=== PATIENT | male | born 1965 | race Caucasian/White ===

== ENCOUNTER 2017-10-12 08:14 | Inpatient (IN) | payer OTHER, BC ==
[2017-10-12] MEDS: morphine 2 MG INJ IV ×3 (09:15→20:34)
[2017-10-12] MEDS: ONDANSETRON 4 MG INJ IV ×2 (09:16→21:06)
[2017-10-12] MEDS: FAMOTIDINE 20 MG INJ IV ×2 (09:16→20:33)
[2017-10-12] MEDS: SOD CHLORIDE 0.9% 1,000 ML IV ×3 (09:16→16:27)
[2017-10-12 09:35] LABS: ADD MAN DIFF? NO
[2017-10-12 09:41] LABS: BASOPHIL # 0.1 10^3/ul (0.0-0.1); BASOPHILS % 0.3 % (0.0-2.0); EOSINOPHILS % 0.3 % (0.0-7.0); HEMOGLOBIN 16.5 g/dl (14.0-18.0); LYMPHOCYTES # 0.6 10^3/ul (0.8-2.9); LYMPHOCYTES % 4.2 % (15.0-51.0); MEAN CORPUSCULAR HEMOGLOBIN 30.1 pg (29.0-33.0); MEAN CORPUSCULAR VOLUME 91.2 fl (82.0-101.0); MEAN PLATELET VOLUME 9.7 fl (7.4-10.4); MONOCYTE # 0.9 10^3/ul (0.3-0.9); MONOCYTES % 5.9 % (0.0-11.0); NEUTROPHILS % 88.8 % (39.0-77.0); PLATELET COUNT 244 10^3/UL (140-415); RED BLOOD COUNT 5.48 10^6/ul (4.70-6.10); RED CELL DISTRIBUTION WIDTH 13.5 % (11.5-14.5)
[2017-10-12 09:41] LABS: WHITE BLOOD COUNT 14.6 10^3/ul (4.8-10.8)
[2017-10-12 09:55] LABS: ALANINE AMINOTRANSFERASE 20 IU/L (13-69); ALBUMIN 4.8 g/dl (3.3-4.9); ALBUMIN/GLOBULIN RATIO 1.29; ALKALINE PHOSPHATASE 123 IU/L (42-121); ANION GAP 18 (8-16); ASPARTATE AMINO TRANSFERASE 38 IU/L (15-46); BILIRUBIN,INDIRECT 0.4 mg/dl (0-1.1); BILIRUBIN,TOTAL 0.4 mg/dl (0.2-1.3); BLOOD UREA NITROGEN 18 mg/dl (7-20); CALCIUM 10.1 mg/dl (8.4-10.2); CARBON DIOXIDE 24 mmol/L (21-31); CHLORIDE 106 mmol/L (97-110); GLUCOSE 149 mg/dl (70-220); LIPASE 60 U/L (23-300); POTASSIUM 4.7 mmol/L (3.5-5.1); SODIUM 143 mmol/L (135-144); TOTAL PROTEIN 8.5 g/dl (6.1-8.1)
[2017-10-12 10:34] LABS: ADD UMIC YES; UR ASCORBIC ACID NEGATIVE (NEGATIVE); UR BILIRUBIN (Dip) NEGATIVE (NEGATIVE); UR BLOOD (Dip) NEGATIVE (NEGATIVE); UR CLARITY CLEAR (CLEAR); UR COLOR YELLOW (YELLOW); UR GLUCOSE (Dip) 1+ mg/dL (NEGATIVE); UR KETONES (Dip) NEGATIVE (NEGATIVE); UR LEUKOCYTE ESTERASE (Dip) NEGATIVE Leu/ul (NEGATIVE); UR MUCUS MANY /HPF (NONE SEEN); UR NITRITE (Dip) NEGATIVE (NEGATIVE); UR RBC 4 /HPF (0-5); UR SPECIFIC GRAVITY (Dip) 1.031 (1.003-1.030); UR SQUAMOUS EPITHELIAL CELL FEW /HPF (FEW); UR TOTAL PROTEIN (Dip) 2+ mg/dl (NEGATIVE); UR UROBILINOGEN (Dip) 1+ mg/dL (NEGATIVE); UR WBC 1 /HPF (0-5)
[2017-10-12] MEDS ORDERED: ACETAMINOPHEN 325 MG TAB PO (13:30)
[2017-10-12] MEDS ORDERED: ONDANSETRON 4 MG INJ IV (13:30)
[2017-10-12] MEDS ORDERED: GLUCOSE GEL 15 GRAM TUBE PO ×2 (14:30)
[2017-10-12] MEDS ORDERED: GLUCOSE GEL 15 GRAM TUBE BUCCAL (14:30)
[2017-10-12] MEDS ORDERED: GLUCAGON 1 MG INJ IM (14:30)
[2017-10-12] MEDS: Discontinue current oral sulfonylureas (glyburide, glipizide, and/or glimepiride) prior to XX (14:30)
[2017-10-12] MEDS ORDERED: NACL 0.9% 3 ML SYG IV (14:30)
[2017-10-12] MEDS ORDERED: ACETAMINOPHEN 650 MG SUPP PR (14:30)
[2017-10-12] MEDS: HYPOGLYCEMIA PROTOCOL when Glucose is <70 mg/dL or symptomatic <90 mg/dL. XX (14:30)
[2017-10-12] MEDS ORDERED: DEXTROSE 50% 50 ML SYRINGE IV (14:30)
[2017-10-12] MEDS ORDERED: NA PHOSPHATE/BIPHOS 133 ML ENEMA PR (14:30)
[2017-10-12 15:29] LABS: AMPHETAMINE/METHAMPHETAMINE Negative (NEGATIVE); BARBITURATES Negative (NEGATIVE); BENZODIAZEPINES Negative (NEGATIVE); CANNABINOIDS Negative (NEGATIVE); COCAINE Negative (NEGATIVE); OPIATES Positive (NEGATIVE)
[2017-10-12] MEDS: INSULIN ASPART [NOVOLOG] 3 ML PEN SC ×2 (17:34→20:32)
[2017-10-12 19:41] LABS: HEPATITIS B SURFACE ANTIGEN NEGATIVE (NEGATIVE)
[2017-10-13] MEDS: INSULIN ASPART [NOVOLOG] 3 ML PEN SC ×6 (01:00→20:52)
[2017-10-13] MEDS: ACCU-CHEK XX (01:41)
[2017-10-13] MEDS: SOD CHLORIDE 0.9% 1,000 ML IV ×2 (04:36→15:08)
[2017-10-13 05:53] LABS: ADD MAN DIFF? NO
[2017-10-13 06:07] LABS: BASOPHILS % 0.4 % (0.0-2.0); EOSINOPHILS # 0.1 10^3/ul (0.0-0.5); EOSINOPHILS % 1.3 % (0.0-7.0); HEMATOCRIT 41.7 % (42.0-52.0); HEMOGLOBIN 14.1 g/dl (14.0-18.0); LYMPHOCYTES # 1.2 10^3/ul (0.8-2.9); MEAN CORPUSCULAR HEMOGLOBIN 30.7 pg (29.0-33.0); MEAN CORPUSCULAR HGB CONC 33.8 g/dl (32.0-37.0); MEAN CORPUSCULAR VOLUME 90.8 fl (82.0-101.0); MONOCYTE # 0.5 10^3/ul (0.3-0.9); NEUTROPHIL # 3.6 10^3/ul (1.6-7.5); NEUTROPHILS % 67.1 % (39.0-77.0); PLATELET COUNT 229 10^3/UL (140-415); POSITIVE DIFF @See below; RED BLOOD COUNT 4.59 10^6/ul (4.70-6.10); RED CELL DISTRIBUTION WIDTH 14.1 % (11.5-14.5)
[2017-10-13 06:07] LABS: WHITE BLOOD COUNT 5.3 10^3/ul (4.8-10.8)
[2017-10-13 06:23] LABS: HEMOGLOBIN A1C 7.2 % (0-5.9)
[2017-10-13 06:35] LABS: ALANINE AMINOTRANSFERASE 31 IU/L (13-69); ALBUMIN 3.7 g/dl (3.3-4.9); ALBUMIN/GLOBULIN RATIO 1.23; ALKALINE PHOSPHATASE 72 IU/L (42-121); ANION GAP 15 (8-16); ASPARTATE AMINO TRANSFERASE 22 IU/L (15-46); BILIRUBIN,INDIRECT 0.5 mg/dl (0-1.1); BILIRUBIN,TOTAL 0.5 mg/dl (0.2-1.3); BLOOD UREA NITROGEN 17 mg/dl (7-20); CALCIUM 8.6 mg/dl (8.4-10.2); CARBON DIOXIDE 25 mmol/L (21-31); CHLORIDE 106 mmol/L (97-110); CREATININE 0.72 mg/dl (0.61-1.24); GLUCOSE 102 mg/dl (70-220); PHOSPHORUS 3.4 mg/dl (2.5-4.9); POTASSIUM 3.8 mmol/L (3.5-5.1); SODIUM 142 mmol/L (135-144); TOTAL PROTEIN 6.7 g/dl (6.1-8.1)
[2017-10-13] MEDS: morphine 2 MG INJ IV ×2 (07:24→17:19)
[2017-10-13] MEDS: ONDANSETRON 4 MG INJ IV (07:25)
[2017-10-13] MEDS: FAMOTIDINE 20 MG INJ IV ×2 (09:17→20:38)
[2017-10-13] MEDS: DEXTROSE 50% 50 ML SYRINGE IV (21:02)
[2017-10-14] MEDS: INSULIN ASPART [NOVOLOG] 3 ML PEN SC ×6 (01:00→17:42)
[2017-10-14] MEDS: ACCU-CHEK XX (01:42)
[2017-10-14] MEDS: morphine 2 MG INJ IV ×2 (02:35→22:13)
[2017-10-14] MEDS: SOD CHLORIDE 0.9% 1,000 ML IV ×3 (04:25→20:54)
[2017-10-14] MEDS: DEXTROSE 50% 50 ML SYRINGE IV (05:40)
[2017-10-14] MEDS: FAMOTIDINE 20 MG INJ IV ×2 (08:30→20:47)
[2017-10-14] MEDS ORDERED: DIATR MEGLU/DIATRIZOATE SODIUM 120 ML BTL (08:57)
[2017-10-14] MEDS ORDERED: metFORMIN 500 MG TAB PO (18:00)
[2017-10-14] MEDS: Insulin NOVOLOG SS MILD Algorithm (SS with meals and bedtime) SC ×2 (18:00→21:00)
[2017-10-15] MEDS: ACCUCHECK AT 2AM (Patients on SS coverage) XX (01:52)
[2017-10-15 06:08] LABS: ADD MAN DIFF? NO
[2017-10-15 06:20] LABS: WHITE BLOOD COUNT 5.5 10^3/ul (4.8-10.8)
[2017-10-15 06:20] LABS: BASOPHILS % 0.5 % (0.0-2.0); EOSINOPHILS # 0.1 10^3/ul (0.0-0.5); EOSINOPHILS % 2.4 % (0.0-7.0); HEMATOCRIT 37.9 % (42.0-52.0); HEMOGLOBIN 12.6 g/dl (14.0-18.0); LYMPHOCYTES # 1.7 10^3/ul (0.8-2.9); MEAN CORPUSCULAR HEMOGLOBIN 30.1 pg (29.0-33.0); MEAN CORPUSCULAR HGB CONC 33.2 g/dl (32.0-37.0); MEAN CORPUSCULAR VOLUME 90.7 fl (82.0-101.0); MEAN PLATELET VOLUME 10.1 fl (7.4-10.4); MONOCYTE # 0.5 10^3/ul (0.3-0.9); MONOCYTES % 8.6 % (0.0-11.0); NEUTROPHIL # 3.2 10^3/ul (1.6-7.5); NEUTROPHILS % 57.3 % (39.0-77.0); PLATELET COUNT 222 10^3/UL (140-415); POSITIVE DIFF @See below; RED BLOOD COUNT 4.18 10^6/ul (4.70-6.10); RED CELL DISTRIBUTION WIDTH 13.6 % (11.5-14.5)
[2017-10-15 06:56] LABS: ANION GAP 13 (8-16); BLOOD UREA NITROGEN 12 mg/dl (7-20); CALCIUM 8.2 mg/dl (8.4-10.2); CARBON DIOXIDE 27 mmol/L (21-31); CHLORIDE 106 mmol/L (97-110); CREATININE 0.79 mg/dl (0.61-1.24); GLUCOSE 78 mg/dl (70-220); POTASSIUM 3.2 mmol/L (3.5-5.1); SODIUM 143 mmol/L (135-144)
[2017-10-15 07:03] LABS: PHOSPHORUS 2.6 mg/dl (2.5-4.9)
[2017-10-15 07:03] LABS: MAGNESIUM 1.9 mg/dl (1.7-2.5)
[2017-10-15] MEDS: Insulin NOVOLOG SS MILD Algorithm (SS with meals and bedtime) SC ×3 (08:00→17:35)
[2017-10-15] MEDS: LINAGLIPTIN 5 MG TABLET PO (08:21)
[2017-10-15] MEDS: FAMOTIDINE 20 MG INJ IV (08:21)
[2017-10-15] MEDS: metFORMIN 500 MG TAB PO ×2 (08:22→17:35)
[2017-10-15] MEDS: PIOGLITAZONE 30 MG TAB PO (08:22)
[2017-10-15] MEDS: SOD CHLORIDE 0.9% 1,000 ML IV ×2 (11:10→17:08)
[2017-10-15] MEDS ORDERED: morphine LIQ (10 MG/5 ML) CUP PO (15:30)
== END 2017-10-15 20:40 | disposition home or self-care (01) | DRG 390 ==
LOC: E/R 08:14 → MS2 13:29
DX: K56.609 Unspecified intestinal obstruction, unspecified as to partial versus complete obstruction (principal); B35.1 Tinea unguium; E11.9 Type 2 diabetes mellitus without complications; E66.9 Obesity, unspecified; Z68.33 Body mass index [BMI] 33.0-33.9, adult
CPT/HCPCS: 36415; 71045; 74176; 74250; 80048; 80053; 80307; 81001; 82962; 83036; 83690; 83735; 84100; 85025; 86803; 87340; 96374; 96375; 96376; 99285-25

== ENCOUNTER 2018-01-25 05:42 | Emergency (ER) | payer OTHER ==
[2018-01-25 06:38] LABS: ADD MAN DIFF? NO
[2018-01-25] MEDS: SOD CHLORIDE 0.9% 1,000 ML IV (06:43)
[2018-01-25] MEDS: ONDANSETRON 4 MG INJ IV (06:43)
[2018-01-25] MEDS: morphine 4 MG/ML VIAL IV (06:43)
[2018-01-25 06:47] LABS: BASOPHIL # 0.1 10^3/ul (0.0-0.1); BASOPHILS % 0.9 % (0.0-2.0); EOSINOPHILS # 0.1 10^3/ul (0.0-0.5); EOSINOPHILS % 2.3 % (0.0-7.0); HEMOGLOBIN 14.8 g/dl (14.0-18.0); LYMPHOCYTES # 1.9 10^3/ul (0.8-2.9); LYMPHOCYTES % 32.9 % (15.0-51.0); MEAN CORPUSCULAR HEMOGLOBIN 30.1 pg (29.0-33.0); MEAN CORPUSCULAR HGB CONC 33.6 g/dl (32.0-37.0); MEAN CORPUSCULAR VOLUME 89.6 fl (82.0-101.0); MEAN PLATELET VOLUME 9.9 fl (7.4-10.4); MONOCYTE # 0.4 10^3/ul (0.3-0.9); MONOCYTES % 6.6 % (0.0-11.0); NEUTROPHIL # 3.3 10^3/ul (1.6-7.5); NEUTROPHILS % 57.1 % (39.0-77.0); PLATELET COUNT 255 10^3/UL (140-415); RED BLOOD COUNT 4.91 10^6/ul (4.70-6.10); RED CELL DISTRIBUTION WIDTH 13.3 % (11.5-14.5)
[2018-01-25 06:47] LABS: WHITE BLOOD COUNT 5.7 10^3/ul (4.8-10.8)
[2018-01-25 07:15] LABS: ALANINE AMINOTRANSFERASE 22 IU/L (13-69); ALBUMIN 3.9 g/dl (3.3-4.9); ALBUMIN/GLOBULIN RATIO 1.21; ALKALINE PHOSPHATASE 107 IU/L (42-121); ANION GAP 12 (8-16); ASPARTATE AMINO TRANSFERASE 19 IU/L (15-46); BILIRUBIN,INDIRECT 0.2 mg/dl (0-1.1); BILIRUBIN,TOTAL 0.2 mg/dl (0.2-1.3); BLOOD UREA NITROGEN 12 mg/dl (7-20); CALCIUM 8.8 mg/dl (8.4-10.2); CARBON DIOXIDE 29 mmol/L (21-31); CHLORIDE 108 mmol/L (97-110); CREATININE 0.68 mg/dl (0.61-1.24); GLUCOSE 173 mg/dl (70-220); LIPASE 80 U/L (23-300); POTASSIUM 4.1 mmol/L (3.5-5.1); SODIUM 145 mmol/L (135-144); TOTAL PROTEIN 7.1 g/dl (6.1-8.1)
[2018-01-25 07:16] LABS: INR 0.96; PROTIME 12.9 Sec (11.9-14.9)
[2018-01-25 07:17] LABS: PARTIAL THROMBOPLASTIN TIME 28.3 Sec (25.0-35.0)
[2018-01-25 07:29] LABS: TROPONIN-I < 0.012 ng/ml (0.00-0.12)
[2018-01-25 07:57] LABS: URINE PH (Dip) POC 5.5 (5.0-8.5)
[2018-01-25 07:57] LABS: URINE BLOOD (Dip) POC Negative (NEGATIVE); URINE KETONES (Dip) POC Negative (NEGATIVE); URINE LEUKOCYTE EST (Dip) POC Negative (NEGATIVE); URINE NITRITE (Dip) POC Negative (NEGATIVE); URINE TOTAL PROTEIN POC Negative (NEGATIVE)
== END 2018-01-25 08:29 | disposition home or self-care (01) ==
LOC: E/R 05:42
DX: R10.13 Epigastric pain (principal); R11.10 Vomiting, unspecified; E11.9 Type 2 diabetes mellitus without complications; Z79.84 Long term (current) use of oral hypoglycemic drugs; Z87.891 Personal history of nicotine dependence
CPT/HCPCS: 36415; 71045; 74176; 80053; 81003; 83690; 84484; 85025; 85610; 85730; 93005; 96374; 96375; 99285-25